=== PATIENT | female | born 1975 | race Caucasian/White ===

== ENCOUNTER 2023-05-20 20:58 | Emergency (ER) | payer OTHER ==
[2023-05-20] MEDS ORDERED: DIPHTH,PERTUSS(ACELL),TET 0.5 ML DISP.SYRIN IM ONE ×2 (21:41→21:48)
[2023-05-20 21:45] VITALS: BP 160/100; PULSE 82; RESP 18; TEMP 98.7; BMI 26.6
[2023-05-20] MEDS ORDERED: metFORMIN HCL 500 MG TABLET (FP) ONE (22:04)
== END 2023-05-20 21:55 | disposition home or self-care (01) ==
LOC: FER 20:58
PROC: 0WQ2XZZ Repair Face, External Approach (ICD-10-PCS; principal; 2023-05-20)
PROC: 3E0234Z Introduction of Serum, Toxoid and Vaccine into Muscle, Percutaneous Approach (ICD-10-PCS; 2023-05-20)
DX: S01.81XA Laceration without foreign body of other part of head, initial encounter (principal); W01.198A Fall on same level from slipping, tripping and stumbling with subsequent striking against other object, initial encounter; Y93.9 Activity, unspecified; Y92.9 Unspecified place or not applicable
CPT/HCPCS: 90715; 99282-25